=== PATIENT | female | born 1990 | race Caucasian/White ===

== ENCOUNTER 2018-02-20 01:17 | Emergency (ER) | payer MEDICAID, OTHER ==
[~2018-02-20] VITALS: Ht 170.2 cm; Wt 74.8 kg
[~2018-02-20 01:17] MED LIST: ALPR0.5T PO; ASPI-612 PO; L-NO1TBD PO
--- NOTE | 2018-02-20 01:47 | NUR ---
PT A/OX4, ABLE TO FOLLOW COMMANDS. PT PRESENTS TO THE ER W/ MULTIPLE COMPLAINTS - GENERALIZED BODY ACHE, SORE THROAT, HEADACHE, SORES ON R HEEL, TOP OF R FOOT, AND L NIPPLE. SORES APPEAR EDEMATOUS W/ DRAINAGE PRESENT. PT STATES GENERALIZED BODY ACHE STARTED ABOUT 2 DAYS AGO. PT DENIES C/P, SOB, N/V/D.
--- NOTE | 2018-02-20 01:55 | NUR ---
ANATOLIY MAYO AT BEDSIDE FOR MSE.
[2018-02-20] MEDS ORDERED: VANCOMYCIN IV 1,000 MG in IV DEXTROSE 5% 250 ML IV ONE (02:00)
[2018-02-20] MEDS ORDERED: IV NORMAL SALINE 1000 ML BAG IV ONE (02:00)
[2018-02-20] MEDS ORDERED: KETOROLAC TROMETHAMINE 30 MG INJ IVP ONE (02:00)
[2018-02-20] MEDS ORDERED: KETOROLAC TROMETHAMINE 30 MG INJ ONE (02:09)
[2018-02-20] MEDS ORDERED: VANCOMYCIN IV 200 ML ONE (02:10)
[2018-02-20] MEDS ORDERED: MUPIROCIN 2% OINT 22 GM TUBE ONE (02:10)
[2018-02-20] MEDS ORDERED: MUPIROCIN 2% OINT 22 GM TUBE TP ONE (02:15)
[2018-02-20 02:27] LABS: BASOPHILS % (AUTO) 0.1 % (0.0-2.0); EOSINOPHILS # (AUTO) 0.1 K/uL (0.0-0.7); EOSINOPHILS % (AUTO) 0.3 % (0.0-7.0); HEMATOCRIT 37.5 % (31.2-41.9); LYMPHOCYTES # (AUTO) 1.4 K/uL (20.0-40.0); LYMPHOCYTES % (AUTO) 8.3 % (20.5-51.5); MEAN CORPUSCULAR HEMOGLOBIN 30.6 uug (24.7-32.8); MEAN CORPUSCULAR HGB CONC 35 g/dL (32.3-35.6); MEAN CORPUSCULAR VOLUME 88.4 fL (75.5-95.3); MONOCYTES # (AUTO) 0.8 K/uL (2.0-10.0); MONOCYTES % (AUTO) 4.8 % (0.0-11.0); NEUTROPHILS # (AUTO) 14.8 K/uL (1.8-8.9); NEUTROPHILS % (AUTO) 86.5 % (38.5-71.5); PLATELET COUNT (AUTO) 187 K/uL (179-408); RED BLOOD CELL COUNT(AUTO) 4.25 MIL/uL (3.63-4.92); WHITE BLOOD COUNT (AUTO) 17.1 K/uL (3.8-11.8)
[2018-02-20 02:57] LABS: BILIRUBIN,DIRECT 0.1 mg/dL (0.0-0.2); BILIRUBIN,TOTAL 0.4 mg/dL (0.2-1.0); CREATININE 0.8 mg/dL (0.6-1.3); POTASSIUM 3.6 mmol/L (3.5-5.1)
[2018-02-20] MEDS ORDERED: ONDANSETRON 4 MG/2 ML VIAL ONE (03:00)
[2018-02-20] MEDS ORDERED: HYDROMORPHONE 2 MG/1 ML DISP.SYRIN ONE (03:00)
[2018-02-20] MEDS ORDERED: diphenhydrAMINE 25 MG CAP PO ONE ×2 (03:06→03:15)
[2018-02-20] MEDS ORDERED: METOCLOPRAMIDE HCL 10 MG/2 ML VIAL ONE (03:06)
[2018-02-20] MEDS ORDERED: MORPHINE SULFATE 2 MG/1 ML DISP.SYRIN ONE (03:07)
[2018-02-20] MEDS ORDERED: METOCLOPRAMIDE HCL 10 MG/2 ML VIAL IV ONE (03:15)
[2018-02-20] MEDS ORDERED: MORPHINE SULFATE 2 MG/1 ML DISP.SYRIN IV ONE (03:15)
[2018-02-20] MEDS ORDERED: diphenhydrAMINE 50 MG/1 ML VIAL IV ONE (03:15)
--- NOTE | 2018-02-20 03:53 | NUR ---
PT TAKEN TO RADIOLOGY FOR CT SCAN. CONSENT FOR CT W/ CONTRAST OBTAINED.
[2018-02-20] MEDS ORDERED: SWABABLE VALVE TRANSFER SET EA MC ONE (03:58)
[2018-02-20] MEDS ORDERED: IV NORMAL SALINE 250 ML IV ONE (03:58)
[2018-02-20] MEDS ORDERED: IOHEXOL 300MG/ML 100 ML INFUS..BTL ONE (03:58)
--- NOTE | 2018-02-20 04:13 | NUR ---
PT BACK IN UNIT FROM CT SCAN.
[2018-02-20] MEDS ORDERED: CLINDAMYCIN HCL 300 MG CAPSULE ONE (06:14)
[2018-02-20] MEDS ORDERED: CLINDAMYCIN HCL 150 MG CAPSULE PO ONE (06:15)
--- NOTE | 2018-02-20 06:23 | NUR ---
Patient discharged to home in stable conditon. Written and verbal after care instructions given. Patient verbalizes understanding of instructions. PT D/C HOME W/ PRESCRIPTIONS. ALL BELONGINGS W/ PT. PT SELF-AMBULATED W/O DIFFICULTY. PT'S MOTHER WILL DRIVE PT HOME IN PRIVATE VEHICLE. 20G IV ACCESS IN L AC REMOVED PRIOR TO D/C - INNER CANNULA INTACT.
[2018-02-20 06:24] VITALS: BP 110/72
== END 2018-02-20 06:24 | disposition home or self-care (01) ==
LOC: ER 01:23
DX: R59.1 Generalized enlarged lymph nodes (principal); L03.115 Cellulitis of right lower limb; F12.10 Cannabis abuse, uncomplicated; F17.210 Nicotine dependence, cigarettes, uncomplicated; Z88.8 Allergy status to other drugs, medicaments and biological substances; Z79.82 Long term (current) use of aspirin; Z79.899 Other long term (current) drug therapy
CPT/HCPCS: 36415; 70491; 80048; 80076; 83605; 85025; 86403; 87040 ×2; 87070 ×2; 87077; 96365; 96375; 99284; J1885; J2270; J2765; J3370; Q0163; Q9967; A4663; J1170; J2405; J7030; J7050